=== PATIENT | male | born 1970 | race Caucasian/White ===

== ENCOUNTER 2017-01-21 07:27 | Emergency (ER) | payer MEDICAID ==
[~2017-01-21] VITALS: Ht 182.9 cm; Wt 126.0 kg
[~2017-01-21 07:27] MED LIST: ACET1TAB40 PO; ASPI-664 PO; ATOR40TA68 PO; BENA10TA48 PO; DOCU-144 PO; ERYT1OIN6 RIGHT EYE; FIORICET PO; HYDR-3498 PO; IBUP-1542 PO; NIT4 SL; ONDA4TAB8 PO
[2017-01-21 07:29] VITALS: Ht 182.9 cm; Wt 126.0 kg
[2017-01-21] MEDS ORDERED: KETOROLAC 60 MG INJ IM STA (07:38)
[2017-01-21] MEDS ORDERED: LEVO750T25 PO (08:02)
[2017-01-21] MEDS ORDERED: NAPR-688 PO (08:02)
[2017-01-21] MEDS ORDERED: ALBU18HF INHALATION (08:02)
[2017-01-21] MEDS ORDERED: HYDR-906 PO (08:02)
--- NOTE | 2017-01-21 08:07 | ERD ---
ER Documentation Chief Complaint Date/Time DATE: 01/21/17 TIME: 08:04 Chief Complaint Intermittent fever with cough and throat pain/swelling x 5 days HPI This 38-year-old male presents emergency room with 5 days of cough, subjective fever at night as well as sore throat for the last 5 days. Is also had some generalized body aches. Denies any chest pain. He is only short of breath when he is coughing. He does not have diabetes. Is usually in a good state of health. ROS All systems reviewed and are negative except as per history of present illness. Medications Home Meds Active Scripts Naproxen* (Naproxen*) 500 Mg Tablet, 500 MG PO BID, #20 TAB Prov:PRASHANTHELENA 01/21/17 Albuterol Sulfate* (Ventolin HFA*) 18 Gm Hfa.aer.ad, 2 PUFF INHALATION Q4H, #1 INHALER Prov:PRASHANTHELENA DO 01/21/17 Levofloxacin* (Levaquin*) 750 Mg Tablet, 750 MG PO DAILY for 5 Days, TAB Prov:PRASHANTHELENAWOLF WHEATLEY 01/21/17 Hydrocodone/Acetaminophen (Cameron 5-325 Tablet) 1 Each Tablet, 1 EACH PO QHS, # 14 TAB Prov:PRASHANTHELENA 01/21/17 Ondansetron Hcl* (Zofran*) 4 Mg Tablet, 4 MG PO Q6H for NAUSEA AND/OR VOMITING, #30 TAB Prov:ALMAS FLORIAN PA-C 07/13/16 Acetamin/Butalbital/Caffeine* (Fioricet*) [id number] Tab, 1 TAB PO Q6H Y for PAIN, #20 TAB Prov:ALMAS FLORIAN PA-C 07/13/16 Docusate Sodium* (Colace*) 100 Mg Capsule, 100 MG PO BID for 10 Days, #30 CAP Prov:WAYNE VILLALTA NP 05/23/16 Acetaminophen-Codeine* (Acetaminophen-Cod #3*) 300-30 Mg Tab, 1 TAB PO Q4H Y for PAIN, #12 TAB Prov:SKIP RICO MD 01/21/16 Erythromycin (Erythromycin Opth) 3.5 Gm Oint..gm., 1 APPLIC RIGHT EYE QID for 7 Days, EA Prov:SKIP RICO MD 01/21/16 Hydrocodone Bit-Acetaminophen* (Cameron*) 5-325 Mg Tab, 1 TAB PO Q6 Y for PAIN, # 15 TAB Prov:HOLLAND ARVIZU C 10/07/15 Ibuprofen* (Motrin*) 600 Mg Tab, 600 MG PO Q6, #30 TAB Prov:FANNIE ARVIZUNA C 16 Nitroglycerin* (Nitrostat*) 25 Tab Subl, 1 TAB SL Q5M Y for ANGINA, #30 Prov:ERIKA RAMOS 10/20/14 Benazepril Hcl* (Benazepril Hcl*) 10 Mg Tab, 10 MG PO DAILY, #30 Prov:REGIDORERIKA 15 Reported Medications Aspirin* (Aspirin* EC) 81 Mg Tablet.dr, 81 MG PO DAILY, TAB 10/18/14 Atorvastatin* (Atorvastatin*) 40 Mg Tablet, 40 MG PO HS, TAB 10/18/14 Allergies Allergies: Coded Allergies: No Known Drug Allergies (Verified Allergy, Unknown, 01/21/17) PMhx/Soc History of Surgery: No Anesthesia Reaction: No Hx Neurological Disorder: No Hx Respiratory Disorders: No Hx Cardiac Disorders: No Hx Psychiatric Problems: No Hx Miscellaneous Medical Probl: No Hx Alcohol Use: No Hx Substance Use: No Hx Tobacco Use: Yes Smoking Status: Current every day smoker Physical Exam Vitals Vital Signs Date Time Temp Pulse Resp B/P Pulse Ox O2 Delivery O2 Flow Rate FiO2 01/21/17 07:29 98.2 85 16 130/86 95 Physical Exam Const: [] Mild distress, appears in comfort Head: Atraumatic Eyes: Normal Conjunctiva ENT: Normal External Ears, Nose and Mouth. Oropharynx within normal limits. Neck: Full range of motion..~ No meningismus. Resp: Mild right basilar expiratory wheezing. No tachypnea no accessory muscle use Cardio: Regular rate and rhythm, no murmurs Abd: Soft, non tender, non distended. Normal bowel sounds Skin: No petechiae or rashes Back: No midline or flank tenderness Ext: No cyanosis, or edema Neur: Awake and alert and oriented 3, no focal deficits Psych: Normal Mood and Affect Results 24 hrs Current Medications Medications (Trade) Dose Ordered Sig/Casey Route PRN Reason Start Time Stop Time Status Last Admin Dose Admin Ketorolac Tromethamine (Toradol) 60 mg ONCE STAT IM 01/21/17 07:38 01/21/17 07:40 DC 01/21/17 07:48 Procedures/MDM Acute bronchitis versus early pneumonia. Also with pharyngitis. Patient's vital signs are still normal the patient has no signs of sepsis. Believe is appropriate for outpatient management. I will discharge her with Levaquin, albuterol inhaler, naproxen and Cameron for cough suppression and pain. Primary care follow-up in the next 2 3 days and return precautions to the ER for any fevers increasing shortness of breath or any chest pain. Departure Diagnosis: Primary Impression: Acute bronchitis Condition: Stable Patient Instructions: Acute Bronchitis Referrals: [facility] YOU HAVE RECEIVED A MEDICAL SCREENING EXAM AND THE RESULTS INDICATE THAT YOU DO NOT HAVE A CONDITION THAT REQUIRES URGENT TREATMENT IN THE EMERGENCY DEPARTMENT. FURTHER EVALUATION AND TREATMENT OF YOUR CONDITION CAN WAIT UNTIL YOU ARE SEEN IN YOUR DOCTORS OFFICE WITHIN THE NEXT 1-2 DAYS. IT IS YOUR RESPONSIBILITY TO MAKE AN APPOINTMENT FOR FOLOW-UP CARE. IF YOU HAVE A PRIMARY DOCTOR --you should call your primary doctor and schedule an appointment IF YOU DO NOT HAVE A PRIMARY DOCTOR YOU CAN CALL OUR PHYSICIAN REFERRAL HOTLINE AT IF YOU CAN NOT AFFORD TO SEE A PHYSICIAN YOU CAN CHOSE FROM THE FOLLOWING [facility] [address] [facility]. [facility] [address] [facility] [facility] [address] [facility] [facility] [address] [facility]. [facility] [address] [facility]. [facility]. [address] Additional Instructions: Llame al doctor MAANA y jose carlos DEACON PARA DENTRO DE 2-3 WATERS.Dgale a la secretaria que nosotros le instruimos hacer esta deacon.Avise o llame si holder condicin se empeora antes de la deacon. Regresa aqui si peor o no mejor. HELENA CERDA DO Jan 21, 2017 08:06
== END 2017-01-21 09:15 | disposition home or self-care (01) ==
LOC: FTE 07:27
DX: J20.9 Acute bronchitis, unspecified (principal); F17.210 Nicotine dependence, cigarettes, uncomplicated; Z79.82 Long term (current) use of aspirin
CPT/HCPCS: 96372; J1885; Z7502

== ENCOUNTER 2017-10-16 19:17 | Emergency (ER) | END 2017-10-16 19:49 | disposition home or self-care (01) ==

== ENCOUNTER 2018-02-23 02:16 | Emergency (ER) | END 2018-02-23 07:15 | disposition home or self-care (01) ==

== ENCOUNTER 2018-02-24 12:50 | Emergency (ER) | END 2018-02-24 19:17 | disposition home or self-care (01) ==

== ENCOUNTER 2018-09-04 08:50 | Emergency (ER) | payer MEDICAID ==
[~2018-09-04] VITALS: Ht 185.4 cm; Wt 131.0 kg
[~2018-09-04 08:50] MED LIST changes: +ACYC800T5 PO; +ALBU18HF INHALATION; -ASPI-664 PO; +ASPI-817 PO; +BENA10TA4 PO; -BENA10TA48 PO; +CETI10CA PO; +CLIN300C10 PO; +HYDR-4011 PO; +HYDR-843 PO; +LEVO750T25 PO; +NAPR-688 PO; -NIT4 SL; +NITR0.4T39 SL; +PRED20TA PO
[2018-09-04 08:51] VITALS: Ht 185.4 cm; Wt 131.0 kg
[2018-09-04] MEDS ORDERED: DIPHENHYDRAMINE 50 MG INJ IV STA (09:25)
[2018-09-04] MEDS ORDERED: METHYLPREDNISOLONE 125 MG INJ IV STA (09:25)
[2018-09-04] MEDS ORDERED: ONDANSETRON 4 MG INJ IV STA (09:25)
[2018-09-04] MEDS ORDERED: HYDROmorphONE 1 MG/ML SYG IV STA (09:25)
[2018-09-04] MEDS ORDERED: SOD CHLORIDE 0.9% 1,000 ML IV STA (09:25)
[2018-09-04] MEDS ORDERED: FAMOTIDINE 20 MG INJ IV STA (09:25)
[2018-09-04] MEDS ORDERED: IOHEXOL 300MG/ML 150 ML BTL ONE (10:20)
[2018-09-04] MEDS ORDERED: SOD CHLORIDE 0.9% 100 ML ONE (10:20)
[2018-09-04] MEDS ORDERED: BEN25 PO (11:47)
[2018-09-04] MEDS ORDERED: DICY10CA40 PO (11:47)
[2018-09-04] MEDS ORDERED: PRED20TA PO (11:47)
--- NOTE | 2018-09-04 11:50 | ERD ---
ER Documentation Chief Complaint Chief Complaint Complains of abdominal pain x 3 days HPI This is a 48-year-old male who is complaining of diffuse abdominal cramps for 3 days now. No nausea vomiting diarrhea no fever pain is not associated with food or not. He said is mild and intermittent. Is also complaining of 6-month history of daily diffuse hives. He says that he has not seen a doctor about the rash is itchy and can come and go. He cannot figure out if there is a certain trigger or not. No shortness of breath no facial swelling no tongue swelling or throat swelling. ROS All systems reviewed and are negative except as per history of present illness. Medications Home Meds Active Scripts Dicyclomine HCl (Dicyclomine HCl) 10 Mg Capsule, 20 MG PO TID PRN for ABDOMINAL CRAMPING, #20 CAP Prov:LORETAT WATTS. DO 09/04/18 Diphenhydramine Hcl* (Benadryl*) 25 Mg Cap, 25 MG PO Q6 PRN for ITCHING/RASH, #30 TAB Prov:LORETTA WATTS DO 09/04/18 Prednisone* (Prednisone*) 20 Mg Tab, 60 MG PO DAILY for 5 Days, TAB Prov:NONI WATTSSTOLOS A. DO 09/04/18 Discontinued Reported Medications Aspirin* (Aspirin* EC) 81 Mg Tablet.dr, 81 MG PO DAILY, TAB 10/18/14 Atorvastatin* (Atorvastatin*) 40 Mg Tablet, 40 MG PO HS, TAB 10/18/14 Discontinued Scripts Ibuprofen* (Motrin*) 600 Mg Tab, 600 MG PO Q6, #30 TAB Prov:HOLLAND ARVIZU 02/24/18 Clindamycin Hcl* (Clindamycin Hcl*) 300 Mg Capsule, 300 MG PO TID for 10 Days, CAP Prov:LUH,HOLLAND C 02/24/18 Ibuprofen* (Motrin*) 600 Mg Tab, 600 MG PO Q6H PRN for PAIN AND OR ELEVATED TEMP, #30 TAB Prov:ESTER REECE. JACQUELINE 02/23/18 Prednisone* (Prednisone*) 20 Mg Tab, 60 MG PO DAILY for 3 Days, TAB Prov:ESTER REECE. STRAIGHTENING MACHINE OPERATOR 02/23/18 Hydroxyzine Hcl* (Hydroxyzine Hcl*) 25 Mg Tablet, 25 MG PO Q8H PRN for ITCHING, #30 TAB Prov:NOHELIA GOMES STRAIGHTENING MACHINE OPERATOR 10/16/17 Cetirizine Hcl* (Zyrtec*) 10 Mg Capsule, 10 MG PO DAILY, #10 TAB.CHEW Prov:NOHELIA GOMES STRAIGHTENING MACHINE OPERATOR 10/16/17 Acyclovir* (Zovirax*) 800 Mg Tablet, 800 MG PO 5 TIMES DAILY for 7 Days, TAB Prov:NOHELIA GOMES STRAIGHTENING MACHINE OPERATOR 10/16/17 Ibuprofen* (Motrin*) 600 Mg Tab, 600 MG PO Q6H PRN for PAIN AND OR ELEVATED TEMP, #30 TAB Prov:NOHELIA GOMES STRAIGHTENING MACHINE OPERATOR 10/16/17 Naproxen* (Naproxen*) 500 Mg Tablet, 500 MG PO BID, #20 TAB Prov:HELENA CERDA DO 01/21/17 Albuterol Sulfate* (Ventolin HFA*) 18 Gm Hfa.aer.ad, 2 PUFF INHALATION Q4H, #1 INHALER Prov:HELENA CERDA DO 01/21/17 Levofloxacin* (Levaquin*) 750 Mg Tablet, 750 MG PO DAILY for 5 Days, TAB Prov:HELENA CERDA DO 01/21/17 Hydrocodone/Acetaminophen ([place] 5-325 Tablet) 1 Each Tablet, 1 EACH PO QHS, #14 TAB Prov:HELENA CERDA DO 01/21/17 Ondansetron Hcl* (Zofran*) 4 Mg Tablet, 4 MG PO Q6H for NAUSEA AND/OR VOMITING, #30 TAB Prov:ALMAS FLORIAN PA-C 07/13/16 Acetamin/Butalbital/Caffeine* (Fioricet*) [id number] Tab, 1 TAB PO Q6H PRN for PAIN, #20 TAB Prov:ALMAS FLORIAN PA-C 07/13/16 Docusate Sodium* (Colace*) 100 Mg Capsule, 100 MG PO BID for 10 Days, #30 CAP Prov:WAYNE VILLALTA, STRAIGHTENING MACHINE OPERATOR 05/23/16 Acetaminophen-Codeine* (Acetaminophen-Cod #3*) 300-30 Mg Tab, 1 TAB PO Q4H PRN for PAIN, #12 TAB Prov:SKIP RICO MD 01/21/16 Erythromycin (Erythromycin Opth) 3.5 Gm Oint..gm., 1 APPLIC RIGHT EYE QID for 7 Days, EA Prov:SKIP RICO MD 01/21/16 Hydrocodone Bit-Acetaminophen* ([place]*) 5-325 Mg Tab, 1 TAB PO Q6 PRN for PAIN, #15 TAB Prov:LUHHOLLAND MACHADO C 10/07/15 Ibuprofen* (Motrin*) 600 Mg Tab, 600 MG PO Q6, #30 TAB Prov:LUHFANNIEHOLLAND C 10/07/15 Nitroglycerin* (Nitrostat*) 25 Tab Subl, 1 TAB SL Q5M PRN for ANGINA, #30 Prov:ERIKA RAMOS 10/20/14 Benazepril Hcl* (Benazepril Hcl*) 10 Mg Tab, 10 MG PO DAILY, #30 Prov:ERIKA RAMOS 10/20/14 Allergies Allergies: Coded Allergies: No Known Drug Allergies (Verified Allergy, Unknown, 02/23/18) PMhx/Soc History of Surgery: No Anesthesia Reaction: No Hx Neurological Disorder: No Hx Respiratory Disorders: No Hx Cardiac Disorders: No Hx Psychiatric Problems: No Hx Miscellaneous Medical Probl: No Hx Alcohol Use: No Hx Substance Use: No Hx Tobacco Use: Yes Smoking Status: Current every day smoker FmHx Family History: No coronary disease Physical Exam Vitals Vital Signs Date Temp Pulse Resp B/P (MAP) Pulse Ox O2 O2 Flow FiO2 Time Delivery Rate 09/04/18 98.1 69 16 109/72 100 Room Air 10:50 (84) 09/04/18 98.1 86 20 151/94 97 08:51 (113) Physical Exam Const: Well-developed, well-nourished Head: Atraumatic, normocephalic Eyes: Normal Conjunctiva, PERRLA, EOMI, normal sclera, no nystagmus ENT: Normal External Ears, Nose and Mouth, moist mucus membranes. Neck: Full range of motion. No meningismus, no lymphadenopathy. Resp: Clear to auscultation bilaterally, no wheezing, rhonchi, rales Cardio: Regular rate and rhythm, no murmurs, S1 S2 present Abd: Soft, diffusely tender to palpation but mild, non distended. Normal bowel sounds, no guarding or rebound, no pulsitile abdominal masses or bruits Skin: Diffuse hives Back: No midline or flank tenderness Ext: No cyanosis, or edema, FROM x 4, normal inspection, neurovascularly intact x 4 Neur: Awake and alert, STR 5/5 x 4, sensation intact x 4, no focal findings, cerebellum intact Psych: Normal Mood and Affect Result Diagram: 09/04/1830 09/04/18 0930 Results 24 hrs Laboratory Tests Test 09/04/18 09:30 White Blood Count 6.8 10^3/ul Red Blood Count 5.75 10^6/ul Hemoglobin 17.5 g/dl Hematocrit 51.5 % Mean Corpuscular Volume 89.6 fl Mean Corpuscular Hemoglobin 30.4 pg Mean Corpuscular Hemoglobin Concent 34.0 g/dl Red Cell Distribution Width 12.7 % Platelet Count 196 10^3/UL Mean Platelet Volume 9.9 fl Immature Granulocytes % 0.300 % Neutrophils % 73.7 % Lymphocytes % 17.0 % Monocytes % 6.8 % Eosinophils % 1.9 % Basophils % 0.3 % Nucleated Red Blood Cells % 0.0 /100WBC Immature Granulocytes # 0.020 10^3/ul Neutrophils # 5.0 10^3/ul Lymphocytes # 1.2 10^3/ul Monocytes # 0.5 10^3/ul Eosinophils # 0.1 10^3/ul Basophils # 0.0 10^3/ul Nucleated Red Blood Cells # 0.0 10^3/ul Sodium Level 141 mmol/L Potassium Level 3.8 mmol/L Chloride Level 101 mmol/L Carbon Dioxide Level 24 mmol/L Anion Gap 16 Blood Urea Nitrogen 15 mg/dl Creatinine 0.76 mg/dl Est Glomerular Filtrat Rate mL/min > 60 mL/min Glucose Level 99 mg/dl Calcium Level 9.1 mg/dl Total Bilirubin 0.8 mg/dl Direct Bilirubin 0.00 mg/dl Indirect Bilirubin 0.8 mg/dl Aspartate Amino Transf (AST/SGOT) 36 IU/L Alanine Aminotransferase (ALT/SGPT) 55 IU/L Alkaline Phosphatase 82 IU/L Total Protein 7.8 g/dl Albumin 4.1 g/dl Globulin 3.70 g/dl Albumin/Globulin Ratio 1.10 Lipase 45 U/L Current Medications Medications Dose Sig/Casey Start Time Status Last (Trade) Ordered Route PRN Stop Time Admin Dose Reason Admin Sodium 1,000 ml @ Q1H STAT 09/04/18 DC 09/04/18 Chloride 1,000 mls/hr IV 09:25 09:39 09/04/18 10:24 1 mg ONCE STAT 09/04/18 DC 09/04/18 Hydromorphone IV 09:25 09:40 HCl 09/04/18 09:29 (Dilaudid) Ondansetron 4 mg ONCE STAT 09/04/18 DC 09/04/18 HCl (Zofran IV 09:25 09:39 Inj) 09/04/18 09:29 25 mg ONCE STAT 09/04/18 DC 09/04/18 Diphenhydrami IV 09:25 09:39 ne HCl 09/04/18 09:29 (Benadryl) Famotidine 20 mg ONCE STAT 09/04/18 DC 09/04/18 (Pepcid Iv) IV 09:25 09:39 09/04/18 09:29 125 mg ONCE STAT 09/04/18 DC 09/04/18 Methylprednis IV 09:25 09:39 olone Sodium 09/04/18 09:29 Succinate (Solu-Medrol) IV Flush 10 ml STK-MED 09/04/18 DC 09/04/18 (NS 10 ml) ONCE .ROUTE 10:20 10:35 09/04/18 10:21 Sodium 100 ml @ ud STK-MED 09/04/18 DC 09/04/18 Chloride ONCE .ROUTE 10:20 10:36 09/04/18 10:21 Iohexol 150 ml STK-MED 09/04/18 DC 09/04/18 (Omnipaque ONCE .ROUTE 10:20 10:36 300mg/ ml) 09/04/18 10:21 Procedures/MDM Ordering MD: LORETTA WATTS DO Location: E/R Room/Bed: PROCEDURE: CT Abdomen and Pelvis with contrast. CLINICAL INDICATION: Abdominal pain TECHNIQUE: CT scan of the abdomen and pelvis with contrast was performed on a multi-detector high-resolution CT scanner. The patient was scanned following i ntravenous administration of 110 ml Omnipaque-300 nonionic contrast. Coronal and sagittal reformatted images obtained from the axial source images. Images were reviewed on a high-resolution PACS workstation. Exam CTDI 23.87 mGy Exam DLP 1773.67 mGy-cm DICOM images are available. One or more of the following dose reduction techniques were utilized: 1.) Automated exposure control 2.) Adjustment of the mA +/- kV according to patient's size 3.) Use of iterative reconstruction technique. COMPARISON: 03/22/2012 FINDINGS: CT abdomen: LOWER THORAX: Mild subsegmental atelectasis in the posterior lung bases. LIVER AND GALLBLADDER: Normal. SPLEEN: Normal. PANCREAS: Normal. ADRENAL GLANDS: Normal. KIDNEYS: The kidneys enhance symmetrically. No hydronephrosis or perinephric f luid stranding. VASCULATURE: Negative for aortic aneurysm or dissection. LYMPH NODES: No significant retroperitoneal or mesenteric lymphadenopathy. Prostate gland is slightly enlarged. BOWEL AND MESENTERY: Stomach and small bowel are unremarkable. A normal appendix is identified. Diverticulosis of the descending and upper sigmoid colon. No associated inflammatory changes or evidence of acute diverticulitis. CT pelvis: The urinary bladder is unremarkable. There is trace free fluid in the pelvis. No significant pelvic lymphadenopathy. Bones: Minor degenerative spurring in the lower thoracic and lumbar spine, regional bones otherwise intact. IMPRESSION: 1. Trace free fluid in the pelvis, nonspecific and of uncertain etiology. No additional acute findings. 2. Diverticulosis of the descending and sigmoid colon. 3. Slightly enlarged prostate gland. 4. Minor degenerative changes in the lower thoracic and lumbar spine. RPTAT: [facility] Physician Lia Date Time Electronically viewed and signed by Physician Lia on 09/04/2018 11:09 xB/ CC: LORETTA WATTS DO [id number] Patient was treated with allergic reaction medication is resolved now. Discussed with him eliminating dairy gluten and any type of fragrances that are found in his soaps or laundry detergent as these are common culprits. I also told him to follow-up see an capacity analyst. His abdominal workup is negative will discharge home with Bentyl Departure Diagnosis: Primary Impression: Allergic reaction Encounter type: initial encounter Qualified Codes: T78.40XA - Allergy, unspecified, initial encounter Additional Impression: Abdominal pain Abdominal location: generalized Qualified Codes: R10.84 - Generalized abdominal pain Condition: Stable Patient Instructions: Abdominal Pain, First Aid: Allergic Reactions LORETTA WATTS DO Sep 04, 2018 11:50
[2018-09-04 12:24] VITALS: BP 117/80; PULSE 69; RESP 15
== END 2018-09-04 12:25 | disposition home or self-care (01) ==
LOC: E/R 08:50
DX: R21 Rash and other nonspecific skin eruption (principal); F17.210 Nicotine dependence, cigarettes, uncomplicated
CPT/HCPCS: 36415; 74177; 80053; 83690; 85025; 96374; 96375; J1170; J1200; J2405; J2930; J7030; Q9967; Z7502; Z7610